=== PATIENT | female | born 1990 ===

== ENCOUNTER 2021-02-04 12:24 | Inpatient (IN) | payer BC ==
[~2021-02-04] VITALS: Ht 172.7 cm; Wt 128.0 kg
[2021-02-04] MEDS ORDERED: LIDOCAINE 1%, 20ML ONE (13:09)
[2021-02-04] MEDS ORDERED: NEWBORN KIT ONE (13:09)
[2021-02-04] MEDS ORDERED: MISOPROSTOL 200 MCG TABLET ONE (13:10)
[2021-02-04] MEDS ORDERED: OXYTOCIN 30U/ 0.9% NaCL 500ML 500 ML ONE (13:10)
[2021-02-04 13:19] LABS: BASOPHILS % (AUTO) 0 % (0-1); EOSINOPHILS % (AUTO) 1 % (1-7); LYMPHOCYTES % (AUTO) 28 % (22-44); MEAN CORPUSCULAR HEMOGLOBIN 30.1 pg (27.0-34.8); MEAN PLATELET VOLUME 9.3 fL (7.4-10.4); MONOCYTES % (AUTO) 6 % (2-9); NEUTROPHILS % (AUTO) 64 % (42-75); PLATELET COUNT 219 x10^3/uL (130-400); RED BLOOD COUNT 4.62 x10^6/uL (3.82-5.3); RED CELL DISTRIBUTION WIDTH 13.9 % (9.6-15.2)
[2021-02-04 13:29] LABS: MD NO
[2021-02-04] MEDS ORDERED: LACTATED RINGERS 1,000 ML IVBOLUS ONE (13:30)
[2021-02-04] MEDS: LACTATED RINGERS 1,000 ML IV SCH ×2 (13:30→21:30)
[2021-02-04] MEDS ORDERED: METOCLOPRAMIDE 5 MG/ML, 2ML IV ONE (13:30)
[2021-02-04] MEDS ORDERED: SODIUM CITRATE/CITRIC ACID 30 ML UDC PO ONE (13:30)
[2021-02-04] MEDS ORDERED: OXYTOCIN 10 UNITS/ML, 1ML ONE (15:07)
[2021-02-04] MEDS ORDERED: FENTANYL PF 100 MCG/2ML ONE (15:07)
[2021-02-04] MEDS ORDERED: HYDROmorphone 2 MG/ML, 1ML ONE (15:07)
[2021-02-04] MEDS ORDERED: CEFAZOLIN 1,000 MG ONE (15:07)
[2021-02-04] MEDS ORDERED: ONDANSETRON 2MG/ML, 2ML ONE (15:07)
[2021-02-04] MEDS ORDERED: KETOROLAC 30 MG/1 ML ONE (15:10)
[2021-02-04] MEDS ORDERED: SODIUM CITRATE/CITRIC ACID 15 ML UDC ONE (15:15)
[2021-02-04] MEDS ORDERED: EPHEDRINE 50 MG/ML, 1ML ONE (17:06)
[2021-02-04] MEDS ORDERED: OXYcodone/APAP 5/325MG TABLET PO PRN (17:30)
[2021-02-04] MEDS ORDERED: MISOPROSTOL 200 MCG TABLET PR PRN (17:30)
[2021-02-04] MEDS ORDERED: ONDANSETRON 2MG/ML, 2ML IV PRN (17:30)
[2021-02-04] MEDS ORDERED: OXYcodone 5 MG/5 ML ORAL.SOL UDC PO PRN (17:30)
[2021-02-04] MEDS ORDERED: LACTATED RINGERS 1,000 ML IV SCH ×2 (17:30)
[2021-02-04] MEDS ORDERED: morphine SULFATE 10 MG/ML, 1ML IVPush PRN (17:30)
[2021-02-04] MEDS ORDERED: SIMETHICONE 80 MG CHEW TAB PO PRN (17:30)
[2021-02-04] MEDS: OXYTOCIN 30U/ 0.9% NaCL 500ML 500 ML IV SCH (17:52)
[2021-02-04 20:15] VITALS: BP 141/85
[2021-02-04] MEDS: KETOROLAC 30 MG/1 ML IV SCH (23:00)
[2021-02-04] MEDS: OXYcodone IR 5MG TABLET PO PRN (23:44)
[2021-02-05 00:10] VITALS: BP 129/84
[2021-02-05 00:41] LABS: BASOPHILS % (AUTO) 0 % (0-1); EOSINOPHILS % (AUTO) 1 % (1-7); LYMPHOCYTES % (AUTO) 26 % (22-44); MEAN CORPUSCULAR HEMOGLOBIN 29.9 pg (27.0-34.8); MEAN CORPUSCULAR HGB CONC 33.7 g/dL (32.4-35.8); MEAN PLATELET VOLUME 9.2 fL (7.4-10.4); MONOCYTES % (AUTO) 5 % (2-9); NEUTROPHILS % (AUTO) 68 % (42-75); PLATELET COUNT 156 x10^3/uL (130-400); RED CELL DISTRIBUTION WIDTH 13.6 % (9.6-15.2)
[2021-02-05 00:45] LABS: MD NO
[2021-02-05] MEDS: OXYTOCIN 30U/ 0.9% NaCL 500ML 500 ML IV SCH ×2 (03:30→13:30)
[2021-02-05] MEDS: OXYcodone IR 5MG TABLET PO PRN ×5 (03:50→22:56)
[2021-02-05 04:00] VITALS: BP 121/81
[2021-02-05] MEDS: KETOROLAC 30 MG/1 ML IV SCH ×3 (05:20→11:02)
[2021-02-05] MEDS: LACTATED RINGERS 1,000 ML IV SCH ×2 (05:30→13:30)
[2021-02-05] MEDS: DOCUSATE 100 MG CAPSULE PO PRN ×2 (08:10→22:55)
[2021-02-05] MEDS: PRENATAL VIT/IRON/FA 1 EACH TABLET PO SCH (08:11)
[2021-02-05 08:37] VITALS: BP 111/63
[2021-02-05 12:10] VITALS: BP 109/71
[2021-02-05] MEDS: ACETAMINOPHEN 325 MG TABLET PO PRN ×3 (13:18→22:55)
[2021-02-05] MEDS: IBUPROFEN 600 MG TABLET PO PRN ×2 (16:35→22:55)
[2021-02-05 16:50] VITALS: BP 118/80
[2021-02-05 20:00] VITALS: BP 129/84
[2021-02-06] MEDS: IBUPROFEN 600 MG TABLET PO PRN ×2 (04:50→10:57)
[2021-02-06] MEDS: ACETAMINOPHEN 325 MG TABLET PO PRN ×2 (04:50→09:21)
[2021-02-06] MEDS: OXYcodone IR 5MG TABLET PO PRN ×3 (04:51→12:41)
[2021-02-06] MEDS ORDERED: OXYC1TAB14 PO (06:52)
[2021-02-06] MEDS ORDERED: IBUP-1222 PO (06:52)
[2021-02-06 08:30] VITALS: BP 118/78
[2021-02-06] MEDS: DOCUSATE 100 MG CAPSULE PO PRN (09:21)
[2021-02-06] MEDS: PRENATAL VIT/IRON/FA 1 EACH TABLET PO SCH (09:21)
[2021-02-06 10:38] VITALS: BP 118/76
== END 2021-02-06 12:46 | disposition home or self-care (01) | DRG 788 ==
LOC: LDIP 12:24 → 2NW 19:21
PROVIDERS: ADMIT Obstetrics & Gynecology; ATTEND Obstetrics & Gynecology
PROC: 10D00Z1 Extraction of Products of Conception, Low, Open Approach (ICD-10-PCS; principal; 2021-02-04)
DX: O36.5932 Maternal care for other known or suspected poor fetal growth, third trimester, fetus 2 (principal); O14.04 Mild to moderate pre-eclampsia, complicating childbirth; O30.033 Twin pregnancy, monochorionic/diamniotic, third trimester; O32.1XX2 Maternal care for breech presentation, fetus 2; Z37.2 Twins, both liveborn; Z3A.36 36 weeks gestation of pregnancy; Z80.6 Family history of leukemia; G89.18 Other acute postprocedural pain; Z20.822 Contact with and (suspected) exposure to COVID-19
CPT/HCPCS: 36415; 85025; 86592; 86850; 86900; 87635; 88307; G0378; J0690; J1170; J1885; J2405; J3010; J2590; J2765; J7120